=== PATIENT | male | born 1985 | race Caucasian/White ===

== ENCOUNTER 2018-09-28 18:54 | Emergency (ER) | payer MEDICAID ==
[~2018-09-28] VITALS: Ht 165.1 cm; Wt 76.7 kg
--- NOTE | 2018-09-28 18:55 | NUR ---
Lotus jones in [facility] - 09/28/18 at 1910 by MEDHT LEÓN STACK FROM [facility] FOR CT SCAN BY [facility] 122
[2018-09-28 18:59] VITALS: BP 161/88
--- NOTE | 2018-09-28 19:17 | NUR ---
PT PRESENTS TO ED BIB FAMILY W RUQ AND R FLANK PAIN SUDDEN ONSET TODAY. PT REPORTS NAUSEA BUT DENIES VOMITTING. DENIES FEVER. ABD IS FLAT, SOFT. BOWEL SOUNDS TO 4 QUADRANTS. LAST BM X 1 HR AGO. HX--denies RX--denies
[2018-09-28] MEDS ORDERED: NACL 0.9% 1,000 ML IV ONE (19:53)
[2018-09-28] MEDS ORDERED: KETOROLAC 30 MG/ML VIAL IVP ONE ×2 (19:55→21:45)
[2018-09-28] MEDS ORDERED: MORPHINE SULFATE 4 MG/ML SYR IVP ONE (19:55)
[2018-09-28] MEDS ORDERED: ONDANSETRON 4 MG/2 ML VIAL IVP ONE (19:55)
--- NOTE | 2018-09-28 20:33 | NUR ---
PT UNABLE TO PROVIDE URINE AT THIS TIME. PROVIDED PT WITH BEDSIDE URINAL AND ENCOURAGED TO URINATE.
[2018-09-28 20:40] LABS: BASOPHILS % (AUTO) 0.2 % (0.0-2.0); EOSINOPHILS # (AUTO) 0.2 K/uL (0-0.4); EOSINOPHILS % (AUTO) 2.2 % (0.0-4.0); HEMATOCRIT 47.8 % (36-52); HEMOGLOBIN 15.6 g/dL (12.0-18.0); LYMPHOCYTES # (AUTO) 2.2 K/uL (2.0-11.5); LYMPHOCYTES % (AUTO) 22.6 % (20.5-51.1); MEAN CORPUSCULAR HEMOGLOBIN 28 pg (27-31); MEAN CORPUSCULAR HGB CONC 33 g/dL (33-37); MEAN CORPUSCULAR VOLUME 84.8 fL (80-94); MONOCYTES # (AUTO) 0.7 K/uL (0.8-1.0); MONOCYTES % (AUTO) 7.3 % (1.7-9.3); NEUTROPHILS # (AUTO) 6.7 K/uL (1.8-7.7); NEUTROPHILS % (AUTO) 67.7 % (42.2-75.2); PLATELET COUNT (AUTO) 285 K/uL (140-450); RED BLOOD CELL COUNT(AUTO) 5.64 MIL/uL (4.20-6.10); RED CELL DISTRIBUTION WIDTH 12.8 % (11.6-13.7); WHITE BLOOD COUNT (AUTO) 9.8 K/uL (4.8-10.8)
[2018-09-28 20:50] LABS: ANION GAP 13.9 (8-16); CARBON DIOXIDE 29.1 mmol/L (21-32); CREATININE 1.2 mg/dL (0.7-1.3)
[2018-09-28 20:55] LABS: PROTHROMBIN TIME 10.2 secs (10.8-13.4)
[2018-09-28 21:02] LABS: ALBUMIN 4.5 g/dL (3.4-5.0); TOTAL BILIRUBIN 0.5 mg/dL (0.0-1.0)
--- NOTE | 2018-09-28 22:04 | NUR ---
Patient discharged with v/s stable. Written and verbal after care instructions given and explained. Patient alert, oriented and verbalized understanding of instructions. Ambulatory with steady gait. All questions addressed prior to discharge. ID band removed. Patient advised to follow up with PMD. Rx of FLOMAX, NORCO, NAPROSYN, ZOFRAN given. Patient educated on indication of medication including possible reaction and side effects. Opportunity to ask questions provided and answered.
[2018-09-28 22:05] VITALS: BP 137/84
== END 2018-09-28 22:05 | disposition home or self-care (01) ==
LOC: MED 18:54
DX: N20.1 Calculus of ureter (principal)
CPT/HCPCS: 36415; 74176; 80053; 81002; 83605; 83690; 85025; 85610; 85730; 86886; 86900; 86901; 87040; 96361; 96374; 96375; 96376; 99284; J1885; J2270; J2405; J7030

== ENCOUNTER 2019-01-09 14:29 | Emergency (ER) | payer MEDICAID ==
[~2019-01-09] VITALS: Ht 165.1 cm; Wt 74.8 kg
[2019-01-09 14:39] VITALS: BP 128/87
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
--- NOTE | 2019-01-09 14:52 | NUR ---
PT AMB TO BED 12
[2019-01-09] MEDS ORDERED: KETOROLAC 30 MG/ML VIAL IM ONE (15:00)
[2019-01-09] MEDS ORDERED: LIDOCAINE 1% 500 MG/50 ML VIAL INJ SCH (15:00)
[2019-01-09] MEDS ORDERED: LIDOCAINE MPF 1% 5mL VIAL ONE ×3 (15:15→15:44)
--- NOTE | 2019-01-09 16:19 | NUR ---
Patient discharged with v/s stable. Written and verbal after care instructions given and explained. Patient alert, oriented and verbalized understanding of instructions. Ambulatory with steady gait. All questions addressed prior to discharge. ID band removed. Patient advised to follow up with PMD. Rx of IBUPROFEN AND ACETAMINOPHEN given. Patient educated on indication of medication including possible reaction and side effects. Opportunity to ask questions provided and answered.
[2019-01-09 16:22] VITALS: BP 120/78
== END 2019-01-09 16:19 | disposition home or self-care (01) ==
LOC: MED 14:29
DX: S61.411A Laceration without foreign body of right hand, initial encounter (principal); W45.8XXA Other foreign body or object entering through skin, initial encounter; Y93.89 Activity, other specified; Y92.098 Other place in other non-institutional residence as the place of occurrence of the external cause; Y99.8 Other external cause status
CPT/HCPCS: 12004; 73130; 90471; 90715; 96372; 99283; J1885; J2001; Q0092

== ENCOUNTER 2019-01-11 14:31 | Emergency (ER) | payer MEDICAID ==
[~2019-01-11] VITALS: Ht 165.1 cm; Wt 74.8 kg
[2019-01-11 14:52] VITALS: BP 133/62
--- NOTE | 2019-01-11 14:57 | NUR ---
Patient ambulated to bed 4 with family. RN evaluating patient at bedside.
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
[2019-01-11] MEDS ORDERED: NEOMYCIN/POLYMYXIN/BACITRACIN 0.9 GM/1 PKT TP ONE (15:15)
--- NOTE | 2019-01-11 15:20 | NUR ---
WOUND CARE DONE BY SEBASTIÁN YU[facility] [place]
[2019-01-11 16:04] VITALS: BP 127/58
== END 2019-01-11 16:00 | disposition home or self-care (01) ==
LOC: MED 14:31
DX: S61.412D Laceration without foreign body of left hand, subsequent encounter (principal); X58.XXXD Exposure to other specified factors, subsequent encounter
CPT/HCPCS: 99282

== ENCOUNTER 2019-01-14 18:47 | Emergency (ER) | payer MEDICAID ==
[~2019-01-14] VITALS: Ht 165.1 cm; Wt 77.1 kg
[2019-01-14 18:50] VITALS: BP 134/73
--- NOTE | 2019-01-14 18:55 | NUR ---
PT AMBULATED TO ER BED 10
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
--- NOTE | 2019-01-14 19:13 | NUR ---
ASSUMED CARE OF PT FROM SEBASTIÁN KNIGHT.
--- NOTE | 2019-01-14 19:18 | NUR ---
REPORT TO SEBASTIÁN FRANCO
--- NOTE | 2019-01-14 19:52 | NUR ---
Bacitracin applied over wound coverd with non adherent gauze and wrapped with tara bandage positive for CSM
[2019-01-14] MEDS ORDERED: BACITRACIN OINT 500 UNITS/GM PKT TP ONE ×2 (19:55→20:01)
--- NOTE | 2019-01-14 20:00 | NUR ---
IVÁN WRAP APPLIED TO R HAND BY ER EMT. +CMS. +ROM. PULSES PRESENT AND EQUAL PRIOR TO AND POST PROCEDURE.
[2019-01-14 20:01] VITALS: BP 138/86
== END 2019-01-14 20:01 | disposition home or self-care (01) ==
LOC: MED 18:47
DX: S61.411D Laceration without foreign body of right hand, subsequent encounter (principal); X58.XXXD Exposure to other specified factors, subsequent encounter
CPT/HCPCS: 99282

== ENCOUNTER 2023-08-08 10:57 | Emergency (ER) | payer MEDICAID ==
[~2023-08-08] VITALS: Ht 162.6 cm; Wt 73.9 kg
[2023-08-08 11:00] VITALS: BP 136/70; PULSE 102; RESP 14; TEMP 98.6; O2SAT 100
[2023-08-08] MEDS ORDERED: LIDOCAINE MPF 1% 10 MG/ML VIAL INJ ONE (11:35)
== END 2023-08-08 13:06 | disposition home or self-care (01) ==
LOC: MED 10:57
DX: S51.811A Laceration without foreign body of right forearm, initial encounter (principal); W26.8XXA Contact with other sharp object(s), not elsewhere classified, initial encounter; Y93.89 Activity, other specified; Y92.89 Other specified places as the place of occurrence of the external cause; Y99.8 Other external cause status
CPT/HCPCS: 12035; 90471; 90715; 99284; J2001

== ENCOUNTER 2023-08-10 13:11 | Emergency (ER) | payer MEDICAID ==
[~2023-08-10] VITALS: Ht 162.6 cm; Wt 74.8 kg
[2023-08-10 13:31] VITALS: BP 129/72; PULSE 84; RESP 16; TEMP 98.1; O2SAT 97
== END 2023-08-10 14:42 | disposition home or self-care (01) ==
LOC: MED 13:11
DX: S51.811D Laceration without foreign body of right forearm, subsequent encounter (principal); E03.0 Congenital hypothyroidism with diffuse goiter; Z48.00 Encounter for change or removal of nonsurgical wound dressing; X58.XXXD Exposure to other specified factors, subsequent encounter
CPT/HCPCS: 99281

== ENCOUNTER 2023-08-19 15:43 | Emergency (ER) | payer MEDICAID ==
[~2023-08-19] VITALS: Ht 162.6 cm; Wt 78.0 kg
[2023-08-19 16:41] VITALS: BP 138/83; PULSE 87; RESP 16; TEMP 98; O2SAT 99
[2023-08-19] MEDS ORDERED: BACITRACIN OINT 500 UNITS/GM PKT TP ONE (17:45)
[2023-08-19 18:11] VITALS: BP 138/83; PULSE 87; RESP 16; TEMP 98; O2SAT 99
== END 2023-08-19 18:12 | disposition home or self-care (01) ==
LOC: MED 15:43
DX: S51.812D Laceration without foreign body of left forearm, subsequent encounter (principal); Z48.02 Encounter for removal of sutures; X58.XXXD Exposure to other specified factors, subsequent encounter
CPT/HCPCS: 99282

== ENCOUNTER 2024-04-15 11:19 | Emergency (ER) | payer MEDICAID, OTHER ==
[~2024-04-15] VITALS: Ht 162.6 cm; Wt 78.6 kg
[2024-04-15 11:35] VITALS: BP 152/97; PULSE 18; RESP 68; TEMP 98; O2SAT 99
[2024-04-15] MEDS ORDERED: OFLO5SOL27 LEFT EAR (12:26)
[2024-04-15 12:45] VITALS: BP 145/88; PULSE 88; RESP 16; TEMP 98; O2SAT 99
== END 2024-04-15 12:45 | disposition home or self-care (01) ==
LOC: MED 11:19
DX: H60.91 Unspecified otitis externa, right ear (principal); Z79.2 Long term (current) use of antibiotics
CPT/HCPCS: 99283